=== PATIENT | male | born 1995 | race Caucasian/White ===

== ENCOUNTER 2016-11-13 17:01 | Emergency (ER) | payer OTHER ==
[~2016-11-13 17:01] MED LIST: AMBIEN5 MG PO; LORTAB ELIXIR480 ML PO; MYCOSTATIN100 K U/ML PO; PHENERGAN25 MG/SUPP RC; ROXICET 5/325500 ML PO; ZOFRAN ODT4 MG/UDTAB PO
== END 2016-11-13 19:19 | disposition left against medical advice (07) ==
LOC: EDMED 17:01
DX: Z53.21 Procedure and treatment not carried out due to patient leaving prior to being seen by health care provider (principal)